=== PATIENT | female | born 1990 | race Caucasian/White ===

== ENCOUNTER 2019-06-27 18:56 | Observation (INO) | payer OTHER ==
[~2019-06-27] VITALS: Ht 162 cm; Wt 79.4 kg
--- NOTE | 2019-06-27 19:07 | NUR ---
C COLLAR PLACED TO PT AT THIS TIME.
[2019-06-27] MEDS ORDERED: NS IV 1000 ML 1,000 ML IV SCH (19:40)
[2019-06-27] MEDS ORDERED: fentaNYL INJECTION 100 MCG/2 ML AMP IVP ONE (19:45)
--- NOTE | 2019-06-27 19:48 | ED Trauma-Multisystem ---
General Chief Complaint: Trauma-Non Activation Stated Complaint: FELL APPROX 8 FT/MULTIPLE SEIZURES Activation Level: Level 2 Source of Information: Patient, Other Exam Limitations: No Limitations History of Present Illness Date Seen by Provider: Jun 27, 2019 Time Seen by Provider: 19:15 Initial Comments The patient arrives the ER by private conveyance with her significant other and chief complaint that sometime between 8:30 and 9:30 this morning she was on a roof doing roof repair and fell off the roof forward one-story onto her face and chest. She's having pain in her chest bilateral flanks, bilateral shoulders right knee and her face which she has a contusion abrasion between her eyebrows. Lost consciousness for less than 1 minute. She refuses to go the ER at that time. Her significant other watched her and said that she had several episodes where her eyes rolled back or head and she would have full body convulsions seizure-like activity. She denies a history of seizures. He is a type I diabetic. Her blood sugar has been okay. He's had no fever chills cough short ness of breath or difficulty with walking. She did lose control of bowel or bladder during her convulsions. Allergies and Home Medications Allergies Coded Allergies: No Known Drug Allergies (Unverified , 06/27/19) Home Medications Cyclobenzaprine HCl 10 Mg Tablet, 10 MG PO Q8H PRN for SPASMS Prescribed by: BREEZY HERNÁNDEZ on 06/28/1943 Hydrocodone Bit/Acetaminophen 1 Tab Tab, 1 EACH PO Q4-6HR PRN for PAIN-MODERATE Prescribed by: BREEZY HERNÁNDEZ on 06/28/1943 Ondansetron 4 Mg Tab.rapdis, 4 MG PO Q6H PRN for NAUSEA/VOMITING Prescribed by: BREEZY HERNÁNDEZ on 06/28/1943 Patient Home Medication List Home Medication List Reviewed: Yes Review of Systems Review of Systems Constitutional: No chills, No diaphoresis Eyes: Denies Blindness, Denies Blurred Vision Ears: Denies Dizziness, Denies Pain Nose: No Bloody Discharge, No Clear Discharge Mouth: No Bloody Discharge Throat: No Aphonia, No Hoarse, No Muffled, No Pain Respiratory: No cough, No short of breath Cardiovascular: See HPI, Chest Pain; Denies Edema, Denies Other Gastrointestinal: abdominal pain; No constipation Past Mrqcadc-Yhpbth-Rgqxqk Hx Patient Social History Alcohol Use: Denies Use Recreational Drug Use: No Smoking Status: Never a Smoker Recent Foreign Travel: No Contact w/Someone Who Travel: No Physical Exam Height, Weight, BMI Height: '" Weight: lbs. oz. kg; BMI Method: General Appearance: Anxious, Mild Distress Head: No Evidence of Injury, Active Bleeding Eyes: Bilateral Eye Normal Inspection, Bilateral Eye PERRL, Bilateral Eye EOMI Ears, Nose, Throat: Hearing Grossly Normal, No Evidence of ENT Injury, No Dental Injury; No Clear Fluid (Ears) Neck: Full Range of Motion, Normal Inspection, Supple, Tender Lateral Cardiovascular: Regular Rate, Rhythm, No Edema, Normal Peripheral Pulses Respiratory: Chest Non Tender, Lungs Clear, Normal Breath Sounds, No Accessory Muscle Use, No Respiratory Distress Gastrointestinal: Normal Bowel Sounds, No Organomegaly Extremity: Normal Capillary Refill, Normal Inspection, No Pedal Edema Neurologic/Psychiatric: Alert, Oriented x3, No Motor/Sensory Deficits Skin: Normal Color, Warm/Dry Progress/Results/Core Measures Results/Orders Lab Results Laboratory Tests Test 06/27/19 19:30 06/27/19 20:03 06/27/19 20:07 Range/Units Sodium Level 135 135-145 MMOL/L Potassium Level 4.7 3.6-5.0 MMOL/L Chloride Level 102 98-107 MMOL/L Carbon Dioxide Level 21 21-32 MMOL/L Anion Gap 12 5-14 MMOL/L Blood Urea Nitrogen 13 7-18 MG/DL Creatinine 0.85 0.60-1.30 MG/DL Estimat Glomerular Filtration Rate > 60 BUN/Creatinine Ratio 15 Glucose Level 377 H 70-105 MG/DL Calcium Level 9.1 8.5-10.1 MG/DL Corrected Calcium 9.2 8.5-10.1 MG/DL Total Bilirubin 0.3 0.1-1.0 MG/DL Aspartate Amino Transf (AST/SGOT) 33 5-34 U/L Alanine Aminotransferase (ALT/SGPT) 12 0-55 U/L Alkaline Phosphatase 109 40-136 U/L Total Protein 7.2 6.4-8.2 GM/DL Albumin 3.9 3.2-4.5 GM/DL Serum Test, Qualitative NEGATIVE NEGATIVE Urine Color YELLOW Urine Clarity CLEAR Urine pH 6.5 5-9 Urine Specific Blair 1.015 L 1.016-1.022 Urine Protein NEGATIVE NEGATIVE Urine Glucose (UA) 3+ H NEGATIVE Urine Ketones NEGATIVE NEGATIVE Urine Nitrite NEGATIVE NEGATIVE Urine Bilirubin NEGATIVE NEGATIVE Urine Urobilinogen 1.0 < = 1.0 MG/DL Urine Leukocyte Esterase NEGATIVE NEGATIVE Urine RBC (Auto) TRACE-I NEGATIVE Urine RBC 0-2 /HPF Urine WBC RARE /HPF Urine Squamous Epithelial Cells 2-5 /HPF Urine Renal Epithelial Cells NONE /HPF Urine Crystals NONE /LPF Urine Bacteria NEGATIVE /HPF Urine Casts NONE /LPF Urine Mucus NEGATIVE /LPF Urine Culture Indicated NO Urine Opiates Screen NEGATIVE NEGATIVE Urine Oxycodone Screen NEGATIVE NEGATIVE Urine Methadone Screen NEGATIVE NEGATIVE Urine Propoxyphene Screen NEGATIVE NEGATIVE Urine Barbiturates Screen NEGATIVE NEGATIVE Ur Tricyclic Antidepressants Screen NEGATIVE NEGATIVE Urine Phencyclidine Screen NEGATIVE NEGATIVE Urine Amphetamines Screen NEGATIVE NEGATIVE Urine Methamphetamines Screen NEGATIVE NEGATIVE Urine Benzodiazepines Screen NEGATIVE NEGATIVE Urine Cocaine Screen NEGATIVE NEGATIVE Urine Cannabinoids Screen NEGATIVE NEGATIVE White Blood Count 6.4 4.3-11.0 10^3/uL Red Blood Count 4.14 L 4.35-5.85 10^6/uL Hemoglobin 11.8 11.5-16.0 G/DL Hematocrit 37 35-52 % Mean Corpuscular Volume 89 80-99 FL Mean Corpuscular Hemoglobin 29 25-34 PG Mean Corpuscular Hemoglobin Concent 32 32-36 G/DL Red Cell Distribution Width 15.2 H 10.0-14.5 % Platelet Count 309 130-400 10^3/uL Mean Platelet Volume 10.0 7.4-10.4 FL Neutrophils (%) (Auto) 58 42-75 % Lymphocytes (%) (Auto) 35 12-44 % Monocytes (%) (Auto) 6 0-12 % Eosinophils (%) (Auto) 1 0-10 % Basophils (%) (Auto) 0 0-10 % Neutrophils # (Auto) 3.7 1.8-7.8 X 10^3 Lymphocytes # (Auto) 2.3 1.0-4.0 X 10^3 Monocytes # (Auto) 0.4 0.0-1.0 X 10^3 Eosinophils # (Auto) 0.1 0.0-0.3 10^3/uL Basophils # (Auto) 0.0 0.0-0.1 10^3/uL My Orders Orders - BREEZY HERNÁNDEZ Cbc With Automated Diff (06/27/19 19:15) Comprehensive Metabolic Panel (06/27/19 19:15) Ua Culture If Indicated (06/27/19 19:15) Drug Screen Stat (Urine) (06/27/19 19:15) Urine Bedside (06/27/19 19:15) Ct Head/Face/Cervical Wo (06/27/19 19:15) Fentanyl Injection (Sublimaze Injection (06/27/19 19:45) Accucheck Stat ONCE (06/27/19 19:40) Chest 1 View, Ap/Pa Only (06/27/19 19:40) Ed Iv/Invasive Line Start (06/27/19 19:40) Ns Iv 1000 Ml (Sodium Chloride 0.9%) (06/27/19 19:40) Ct Chest/Abdomen/Pelvis W (06/27/19 19:40) Shoulder, Bilateral, 3 Views (06/27/19 19:40) Knee, Right, 3 Views (06/27/19 19:40) Continuous Ekg Monitoring (06/27/19 19:52) Ekg Tracing (06/27/19 19:52) Hcg,Qualitative Serum (06/27/19 20:19) Iohexol Injection (Omnipaque 350 Mg/Ml 1 (06/27/19 20:30) Received Contrast (Hold Metformin- Contr (06/27/19 20:30) Ns (Ivpb) (Sodium Chloride 0.9% Ivpb Bag (06/27/19 20:30) Morphine Injection (Morphine Injection (06/27/19 21:11) Ondansetron Injection (Zofran Injectio (06/27/19 21:15) Insulin Aspart (Novolog) (Novolog (Charg (06/27/19 22:45) Orphenadrine Injection (Norflex Injectio (06/27/19 23:00) Accucheck Stat ONCE (06/27/19 23:17) Ketorolac Injection (Toradol Injection) (06/27/19 23:45) Ondansetron Injection (Zofran Injectio (06/28/19 00:30) Rx-Ondansetron Po (Rx-Zofran Po) (06/28/19 00:47) Rx-Hydrocodone/Apap 5-325 Mg (Rx-Vicodin (06/28/19 01:00) D50w (Emergency) Syringe (Dextrose 50% 5 (06/28/19 01:15) D50w (Emergency) Syringe (Dextrose 50% 5 (06/28/19 00:56) D50w (Emergency) Syringe (Dextrose 50% 5 (06/28/19 01:15) General/Regular (06/28/19 Breakfast) Accucheck Stat ONCE (06/28/19 01:36) Dextrose 10% Iv Solution (D10w 1000 Ml I (06/28/19 01:57) Dextrose 10% Iv Solution (D10w 1000 Ml I (06/28/19 02:15) D50w (Emergency) Syringe (Dextrose 50% 5 (06/28/19 02:15) Dextrose 10% Iv Solution (D10w 1000 Ml I (06/28/19 02:15) Medications Given in ED Current Medications Medications Dose Ordered Sig/Dl Route Start Time Stop Time Status Last Admin Dose Admin Dextrose 25 ml ONCE ONCE IV 06/28/19 01:15 06/28/19 01:09 DC 06/28/19 01:04 25 ML Dextrose 50 ml ONCE ONCE IV 06/28/19 01:15 06/28/19 01:16 DC 06/28/19 02:07 50 ML Fentanyl Citrate 50 mcg ONCE ONCE IVP 06/27/19 19:45 06/27/19 19:46 DC 06/27/19 20:48 50 MCG Insulin Aspart 20 unit ONCE ONCE SC 06/27/19 22:45 06/27/19 22:46 DC 06/28/19 00:21 20 UNIT Iohexol 100 ml ONCE ONCE IV 06/27/19 20:30 06/27/19 20:32 DC 06/27/19 20:25 94 ML Ketorolac Tromethamine 30 mg ONCE ONCE IVP 06/27/19 23:45 06/27/19 23:46 DC 06/28/19 00:20 30 MG Ondansetron HCl 4 mg ONCE ONCE IVP 06/27/19 21:15 06/27/19 21:16 DC 06/27/19 22:03 4 MG Ondansetron HCl 8 mg ONCE ONCE IVP 06/28/19 00:30 06/28/19 00:31 DC 06/28/19 00:50 8 MG Orphenadrine Citrate 60 mg ONCE ONCE IV 06/27/19 23:00 06/27/19 23:01 DC 06/28/19 00:20 60 MG Vital Signs/I&O 06/28/19 00:00 Intake Total 1000 ml Balance 1000 ml Progress Progress Note #1: Time: 19:[address] without IV contrast of the head, maxillofacial and neck. CT with IV contrast of her chest and abdomen. Plain view films of her shoulders, right knee and chest. Blood and urine. Accu-Chek. Progress Note #2: Time: 22:50 Progress Note C-collar cleared radiographically. Patient still having some tenderness on Norflex and a soft collar ordered. We offered her Toradol and she declined at this time. She received the morphine and that took care of her pain for the time being. Progress Note #3: Time: 01:02 Progress Note Repeat blood glucose of 29. Plan to give amp of D50. Progress Note #4: Time: 02:31 Progress Note After the amp of D50 her blood sugar was 129 so we ordered her a meal tray. As the bathhouse keeper was taking her a meal tray she was sweaty and clammy and her blood sugar was back in 30s. D10 was ordered but we do not have any in the ER so we gave her another amp of D50. We started D10 at 100 cc an hour and discussed staying as an observation and she and her significant other agreed to do this. We'll put her in the stepdown unit. Progress Note #5: Time: 03:04 Progress Note Patient's blood sugar back down to 39. She is mentating and talking. We checked with a second glucometer and 34. Went ahead and gave her 200 cc bolus of D10 and increased her D10 to 200 cc per hour. Initial ECG Impression Date: Jun 27, 2019 Initial ECG Impression Time: 20:49 Initial ECG Rate: 88 Initial ECG Rhythm: Normal Sinus Initial ECG Intervals: Normal Initial ECG Impression: Normal Initial ECG Comparisson: No Previous ECG Available Comment Normal sinus rhythm without ST changes. Diagnostic Imaging Diagonstic Imaging: Xray Plain Films/CT/US/NM/MRI: chest (1v) Comments NAME: MORGANMICHELLE RENTERIA [facility] REC#: [id number] PT STATUS: REG ER : 1990 PHYSICIAN: BREEZY HERNÁNDEZ MD ADMIT DATE: 06/27/19/ER Signed Date of Exam:06/27/19 CHEST 1 VIEW, AP/PA ONLY INDICATION: Fall. EXAMINATION: Single view of the chest was obtained. FINDINGS: The heart size, mediastinal configuration and pulmonary vascularity are within normal limits. There is no pleural effusion, pneumothorax or pneumonia. The osseous structures are unremarkable. IMPRESSION: No acute cardiopulmonary abnormality. Dictated by: Dictated on workstation # [id number] Dict: 06/27/192040 Trans: 06/27/192052 PJE [id number] Interpreted by: MASON PATEL MD Electronically signed by: MASON PATEL MD 06/27/192052 Reviewed: Reviewed by Me Diagonstic Imaging: CT Plain Films/CT/US/NM/MRI: c-spine, head Comments [facility], [place] NAME: MICHELLE EASLEY [facility] REC#: [id number] PT STATUS: REG ER : 1990 PHYSICIAN: BREEZY HERNÁNDEZ MD ADMIT DATE: 06/27/19/ER Signed Date of Exam:06/27/19 CT HEAD/FACE/CERVICAL WO PROCEDURE: CT head, face, and cervical spine without contrast. TECHNIQUE: Multiple contiguous axial images were obtained through the head, neck, and facial bones without the use of intravenous contrast. Sagittal and coronal reformations through the cervical spine and facial bones were also performed. Auto Exposure Controls were utilized during the CT exam to meet ALARA standards for radiation dose reduction. INDICATION: Head and neck pain after fall. FINDINGS: The ventricles and sulci are within normal limits. There is no hydrocephalus or cerebral edema. There is no midline shift or mass effect. There is no intracranial mass, hemorrhage or extra-axial fluid collection. The visualized paranasal sinuses and mastoid air cells are clear. No fractures are identified. CERVICAL SPINE: Alignment is normal. There is no fracture or traumatic subluxation. The prevertebral soft tissues are within normal limits. The odontoid is intact and the lateral masses are well aligned. There are no soft tissue abnormalities. IMPRESSION: 1. No acute intracranial process. 2. No focal abnormality in the cervical spine. Dictated by: Dictated on workstation # [id number] Dict: 06/27/192022 Trans: 06/27/192025 VASYL [id number] Interpreted by: MASON PATEL MD Electronically signed by: MASON PATEL MD 06/27/192025 Reviewed: Reviewed by Me Diagonstic Imaging: CT Plain Films/CT/US/NM/MRI: chest, abdomen, pelvis Comments [facility], [place] NAME: MICHELLE EASLEY [facility] REC#: [id number] PT STATUS: REG ER : 1990 PHYSICIAN: BREEZY HERNÁNDEZ MD ADMIT DATE: 06/27/19/ER Signed Date of Exam:06/27/19 CT CHEST/ABDOMEN/PELVIS W PROCEDURE: CT chest, abdomen, and pelvis with contrast. TECHNIQUE: Multiple contiguous axial images were obtained through the chest, abdomen, and pelvis after the administration of intravenous contrast. Auto Exposure Controls were utilized during the CT exam to meet ALARA standards for radiation dose reduction. INDICATION: Fall. FINDINGS: There are no discrete pulmonary nodules, masses or infiltrates. There is no pleural or pericardial fluid. There is no pneumothorax. Heart size is normal. Thoracic aorta is normal in caliber without evidence of dissection. There is no pathologically enlarged adenopathy in the chest. There is no evidence of mediastinal hematoma. The osseous structures are unremarkable. The liver is normal in size without focal lesions. Gallbladder is unremarkable. There is no biliary duct dilatation. Spleen is normal. Pancreas is normal. Adrenal glands and kidneys are normal. Aorta is nonaneurysmal. Bowel gas pattern is nonspecific. There is no free air. There is no ascites. There are no focal inflammatory changes. Specifically, there is no perihepatic or perisplenic free fluid. Bladder is normal. There is no pelvic mass or adenopathy. The osseous structures are unremarkable. IMPRESSION: No acute abnormality in the chest, abdomen or pelvis Dictated by: Dictated on workstation # [id number] Dict: 06/27/192029 Trans: 06/27/192052 VASYL [id number] Interpreted by: MASON PATEL MD Electronically signed by: MASON PATEL MD 06/27/192052 Reviewed: Reviewed by Sd Diagonstic Imaging: Xray Plain Films/CT/US/NM/MRI: knee (r) Comments [facility], [place] NAME: MICHELLE EASLEY [facility] REC#: [id number] PT STATUS: REG ER : 1990 PHYSICIAN: BREEZY HERNÁNDEZ MD ADMIT DATE: 06/27/19/ER Signed Date of Exam:06/27/19 KNEE, RIGHT, 3 VIEWS INDICATION: Fall. EXAMINATION: Three views of the right knee were obtained. FINDINGS: The alignment is normal. There is no fracture or dislocation. Soft tissues are unremarkable. IMPRESSION: No focal abnormality in the right knee. Dictated by: Dictated on workstation # [id number] Dict: 06/27/192041 Trans: 06/27/192052 PJE [id number] Interpreted by: MASON PATEL MD Electronically signed by: MASON PATEL MD 06/27/192052 Reviewed: Reviewed by Sd Diagonstic Imaging: Xray Plain Films/CT/US/NM/MRI: other (bilateral shoulders) Comments [facility], [place] NAME: MICHELLE EASLEY [facility] REC#: [id number] PT STATUS: REG ER : 1990 PHYSICIAN: BREEZY HERNÁNDEZ MD ADMIT DATE: 06/27/19/ER Signed Date of Exam:06/27/19 SHOULDER, BILATERAL, 3 VIEWS INDICATION: Fall. EXAMINATION: Multiple views of bilateral shoulders. FINDINGS: The alignment of the right shoulder is normal. There is no fracture or dislocation. Soft tissues are unremarkable. Right lung is clear. The left shoulder is also normal. There is no fracture or dislocation. There appears to be a bone island in the glenoid. Left lung is clear. Soft tissues are unremarkable. IMPRESSION: No acute fracture or dislocation. Dictated by: Dictated on workstation # [id number] Dict: 06/27/192040 Trans: 06/27/192052 PJE [id number] Interpreted by: MASON PATEL MD Electronically signed by: MASON PATEL MD 06/27/192052 Reviewed: Reviewed by Me Consults : Consulting Physician: ABIGAIL ARELLANO DO Consults Notes [address] Arellano earlier in the evening and again after all her imaging back we reviewed and agreed with sending her home. We will not be observing her for trauma related reasons just hypoglycemia. Departure Communication (Admissions) Time/Spoke to Admitting Phy: 02:30 Discussed the case with Dr. Cueto and he agrees to observe in the stepdown unit . She is not been observed for her trauma related injuries or other from hypoglycemia. Impression Primary Impression: Fall from roof as cause of accidental injury Additional Impressions: Concussion Qualified Codes: S06.0X1A - Concussion with loss of consciousness of 30 minutes or less, initial encounter Contusion of forehead Qualified Codes: S00.83XA - Contusion of other part of head, initial encounter Shoulder pain, bilateral Qualified Codes: M25.511 - Pain in right shoulder; M25.512 - Pain in left shoulder Right knee pain Qualified Codes: M25.561 - Pain in right knee Neck pain, acute Hypoglycemia Disposition: ADMITTED INPATIENT Condition: Stable Admissions Decision to Admit Reason: Admit from ER (General) Decision to Admit/Date: Jun 28, 2019 Time/Decision to Admit Time: 02:33 Departure-Patient Inst. Referrals: NO,LOCAL PHYSICIAN (PCP/Family) Primary Care Physician Patient Instructions: Concussion in Adults, Minor Head Injury Add. Discharge Instructions: Expect to be sore over the next couple weeks. If you're not seeing some impro vement in need to follow-up with your primary care doctor. Topical creams such as icy hot or Biofreeze as well as heating pads can be helpful. Ice to the neck and back for the first couple days can be helpful. Tylenol 650 mg every 8 hours as needed for pain. Ibuprofen 800 mg every 8 hours as needed for pain. Hydrocodone one tablet every 6 hours as needed for breakthrough pain. Flexeril every 8 hours as needed for muscle spasms. Ondansetron one tablet every 6 hours as needed for nausea or vomiting. Spend the next 2 days taking it easy around the house. MiraLAX once or twice a day all using hydrocodone to prevent constipation. All discharge instructions reviewed with patient and/or family. Voiced understanding. Scripts Cyclobenzaprine HCl (Cyclobenzaprine HCl) 10 Mg Tablet 10 MG PO Q8H PRN for SPASMS, #15 TAB 0 Refills Prov: BREEZY HERNÁNDEZ 06/28/19 Ondansetron (Ondansetron Odt) 4 Mg Tab.rapdis 4 MG PO Q6H PRN for NAUSEA/VOMITING, #15 TAB 0 Refills Prov: BREEZY HERNÁNDEZ 06/28/19 Hydrocodone Bit/Acetaminophen (Hydrocodone/Acetaminophen 5/325mg Tablet) 1 Tab Tab 1 EACH PO Q4-6HR PRN for PAIN-MODERATE MDD 10, #20 TAB 0 Refills Prov: BREEZY HERNÁNDEZ 06/28/19 Work/School Note: Work Release Form Date Seen in the Emergency Department: Jul 01, 2019 Return to Work: Jul 01, 2019 Restrictions: Need Release from Doctor Other Restrictions Listed Below: Light duty, no lifting more than 5 pounds until 08/02/19. BREEZY HERNÁNDEZ Jun 27, 2019 19:48
[2019-06-27 20:01] LABS: ALANINE AMINOTRANSFERASE 12 U/L (0-55); ALBUMIN 3.9 GM/DL (3.2-4.5); ALKALINE PHOSPHATASE 109 U/L (40-136); BILIRUBIN,TOTAL 0.3 MG/DL (0.1-1.0); BUN/CREATININE RATIO 15; CALCIUM 9.1 MG/DL (8.5-10.1); CARBON DIOXIDE 21 MMOL/L (21-32); CHLORIDE 102 MMOL/L (98-107); CREATININE SERUM 0.85 MG/DL (0.60-1.30); GFR ESTIMATED > 60; GLUCOSE 377 MG/DL (70-105); POTASSIUM 4.7 MMOL/L (3.6-5.0); SODIUM 135 MMOL/L (135-145); TOTAL PROTEIN 7.2 GM/DL (6.4-8.2)
[2019-06-27 20:13] LABS: BASOPHILS % (AUTO) 0 % (0-10); EOSINOPHILS # (AUTO) 0.1 10^3/uL (0.0-0.3); EOSINOPHILS % (AUTO) 1 % (0-10); HEMATOCRIT 37 % (35-52); HEMOGLOBIN 11.8 G/DL (11.5-16.0); LYMPHOCYTES # (AUTO) 2.3 X 10^3 (1.0-4.0); LYMPHOCYTES % (AUTO) 35 % (12-44); MEAN CORPUSCULAR HEMOGLOBIN 29 PG (25-34); MEAN CORPUSCULAR HGB CONC 32 G/DL (32-36); MEAN CORPUSCULAR VOLUME 89 FL (80-99); MONOCYTES # (AUTO) 0.4 X 10^3 (0.0-1.0); MONOCYTES % (AUTO) 6 % (0-12); NEUTROPHILS # (AUTO) 3.7 X 10^3 (1.8-7.8); NEUTROPHILS % (AUTO) 58 % (42-75); PLATELET COUNT 309 10^3/uL (130-400); RED CELL DISTRIBUTION WIDTH 15.2 % (10.0-14.5); WHITE BLOOD COUNT 6.4 10^3/uL (4.3-11.0)
[2019-06-27 20:16] LABS: BILIRUBIN,URINE NEGATIVE (NEGATIVE); CLARITY,URINE CLEAR; COLOR,URINE YELLOW; GLUCOSE, URINE (UA) 3+ (NEGATIVE); KETONES,URINE NEGATIVE (NEGATIVE); LEUKOCYTE ESTERASE ,URINE NEGATIVE (NEGATIVE); NITRITE,URINE NEGATIVE (NEGATIVE); PH,URINE 6.5 (5-9); PROTEIN,URINE NEGATIVE (NEGATIVE)
[2019-06-27 20:24] LABS: AMPHETAMINE SCREEN, URINE NEGATIVE (NEGATIVE); BARBITURATE SCREEN URINE NEGATIVE (NEGATIVE); BENZODIAZEPINES SCREEN URINE NEGATIVE (NEGATIVE); CANNABINOID SCREEN, URINE NEGATIVE (NEGATIVE); COCAINE SCREEN URINE NEGATIVE (NEGATIVE); METHADONE STAT NEGATIVE (NEGATIVE); METHAMPHETAMINE SCREEN URINE S NEGATIVE (NEGATIVE); OPIATE SCREEN URINE NEGATIVE (NEGATIVE); OXYCODONE STAT NEGATIVE (NEGATIVE); PROPOXYPHENE STAT NEGATIVE (NEGATIVE); TRICYCLIC ANTIDEPRESSANTS SCRE NEGATIVE (NEGATIVE)
--- NOTE | 2019-06-27 20:26 | Diagnostic Imaging Report ---
PROCEDURE: CT head, face, and cervical spine without contrast. TECHNIQUE: Multiple contiguous axial images were obtained through the head, neck, and facial bones without the use of intravenous contrast. Sagittal and coronal reformations through the cervical spine and facial bones were also performed. Auto Exposure Controls were utilized during the CT exam to meet ALARA standards for radiation dose reduction. INDICATION: Head and neck pain after fall. FINDINGS: The ventricles and sulci are within normal limits. There is no hydrocephalus or cerebral edema. There is no midline shift or mass effect. There is no intracranial mass, hemorrhage or extra-axial fluid collection. The visualized paranasal sinuses and mastoid air cells are clear. No fractures are identified. CERVICAL SPINE: Alignment is normal. There is no fracture or traumatic subluxation. The prevertebral soft tissues are within normal limits. The odontoid is intact and the lateral masses are well aligned. There are no soft tissue abnormalities. IMPRESSION: 1. No acute intracranial process. 2. No focal abnormality in the cervical spine. Dictated by: Dictated on workstation # [id number]
[2019-06-27] MEDS ORDERED: IOHEXOL 350 MG/ML 100 ML (OMNIPAQUE 350) VIAL IV ONE (20:30)
[2019-06-27] MEDS ORDERED: HOLD METFORMIN - RECEIVED CONTRAST 20 ML VIAL IV SCH (20:30)
[2019-06-27] MEDS ORDERED: NS 100 ML (IVPB) BAG IV ONE (20:30)
[2019-06-27 20:32] LABS: RBC,URINE 0-2 /HPF; WBC,URINE RARE /HPF
[2019-06-27 20:33] LABS: BACTERIA,URINE NEGATIVE /HPF
--- NOTE | 2019-06-27 20:41 | Diagnostic Imaging Report ---
PROCEDURE: CT chest, abdomen, and pelvis with contrast. TECHNIQUE: Multiple contiguous axial images were obtained through the chest, abdomen, and pelvis after the administration of intravenous contrast. Auto Exposure Controls were utilized during the CT exam to meet ALARA standards for radiation dose reduction. INDICATION: Fall. FINDINGS: There are no discrete pulmonary nodules, masses or infiltrates. There is no pleural or pericardial fluid. There is no pneumothorax. Heart size is normal. Thoracic aorta is normal in caliber without evidence of dissection. There is no pathologically enlarged adenopathy in the chest. There is no evidence of mediastinal hematoma. The osseous structures are unremarkable. The liver is normal in size without focal lesions. Gallbladder is unremarkable. There is no biliary duct dilatation. Spleen is normal. Pancreas is normal. Adrenal glands and kidneys are normal. Aorta is nonaneurysmal. Bowel gas pattern is nonspecific. There is no free air. There is no ascites. There are no focal inflammatory changes. Specifically, there is no perihepatic or perisplenic free fluid. Bladder is normal. There is no pelvic mass or adenopathy. The osseous structures are unremarkable. IMPRESSION: No acute abnormality in the chest, abdomen or pelvis Dictated by: Dictated on workstation # [id number]
--- NOTE | 2019-06-27 20:44 | Diagnostic Imaging Report ---
INDICATION: Fall. EXAMINATION: Single view of the chest was obtained. FINDINGS: The heart size, mediastinal configuration and pulmonary vascularity are within normal limits. There is no pleural effusion, pneumothorax or pneumonia. The osseous structures are unremarkable. IMPRESSION: No acute cardiopulmonary abnormality. Dictated by: Dictated on workstation # [id number]
--- NOTE | 2019-06-27 20:45 | Diagnostic Imaging Report ---
INDICATION: Fall. EXAMINATION: Multiple views of bilateral shoulders. FINDINGS: The alignment of the right shoulder is normal. There is no fracture or dislocation. Soft tissues are unremarkable. Right lung is clear. The left shoulder is also normal. There is no fracture or dislocation. There appears to be a bone island in the glenoid. Left lung is clear. Soft tissues are unremarkable. IMPRESSION: No acute fracture or dislocation. Dictated by: Dictated on workstation # [id number]
--- NOTE | 2019-06-27 20:46 | Diagnostic Imaging Report ---
INDICATION: Fall. EXAMINATION: Three views of the right knee were obtained. FINDINGS: The alignment is normal. There is no fracture or dislocation. Soft tissues are unremarkable. IMPRESSION: No focal abnormality in the right knee. Dictated by: Dictated on workstation # [id number]
[2019-06-27] MEDS ORDERED: morphine INJ 10 MG/ML 1ML (SYR OR VIAL) IVP STA (21:11)
[2019-06-27] MEDS ORDERED: ONDANSETRON 4 MG/2 ML (SDV) Z0FRAN IVP ONE (21:15)
[2019-06-27] MEDS ORDERED: inSUlin ASPART (NovoLOG) 1 UNIT/0.01 ML (CHARGE PER UNIT) SC ONE (22:45)
--- NOTE | 2019-06-27 22:50 | NUR ---
C COLLAR REMOVED BY DR. HERNÁNDEZ AT THIS TIME. SOFT COLLAR PLACED TO PT AT THIS TIME.
[2019-06-27] MEDS ORDERED: ORPHENADRINE 60 MG/2 ML (NORFLEX) AMP IV ONE (23:00)
[2019-06-27] MEDS ORDERED: KETOROLAC 30 MG/ML VIAL IVP ONE (23:45)
[2019-06-28] VITALS (9 sets, daily range): BP systolic 90–120; BP diastolic 52–80
[2019-06-28] MEDS ORDERED: ONDANSETRON 4 MG/2 ML (SDV) Z0FRAN IVP ONE (00:30)
[2019-06-28] MEDS ORDERED: ONDA4TAB11 PO (00:45)
[2019-06-28] MEDS ORDERED: ACHD5005 PO (00:45)
[2019-06-28] MEDS ORDERED: CYCL10TA9 PO (00:45)
[2019-06-28] MEDS: RX-ONDANSETRON 4 MG ODT (ZOFRAN) PPK #4 PO STA ×2 (00:56→03:00)
[2019-06-28] MEDS ORDERED: DEXTROSE 50% 50 ML (IMS) SYR ONE (00:56)
[2019-06-28] MEDS: RX-HYDROCODONE/APAP 5/325 MG #4 TAB PK PO PRN ×2 (00:57→03:00)
[2019-06-28] MEDS ORDERED: DEXTROSE 50% 50 ML (IMS) SYR IV ONE ×3 (01:15→02:15)
[2019-06-28] MEDS ORDERED: DEXTROSE 10% IV SOLUTION 1,000 ML IV ONE (01:57)
[2019-06-28] MEDS: DEXTROSE 10% IV SOLUTION 1,000 ML IV SCH ×2 (02:11→04:29)
[2019-06-28] MEDS ORDERED: DEXTROSE 10% IV SOLUTION 1,000 ML IV SCH ×2 (02:15→06:00)
--- NOTE | 2019-06-28 04:45 | NUR ---
0100- BLOOD SUGAR 29 MG/DL. PT HARD TO AROUSE. AT BEDSIDE. DR. HERNÁNDEZ NOTIFIED. NEW ORDERS RECEIVED. 0104- D50 GIVEN IVP. 0115- BLOOD SUGAR 138 MG/DL. PT AWAKE AND ALERT AND ORIENTED. REMAINS AT BEDSIDE. 0158- BLOOD SUGAR 33 MG/DL. DR. HERNÁNDEZ NOTIFIED. NEW ORDERS RECEIVED. 0201- D50 GIVEN IVP. 0211- D10 IVF STARTED AT 100CC/HR AFTER HAVING TO BE OBTAINED FROM ICU. TUBE SYSTEM WAS DOWN SO STAFF HAD TO LEAVE FROM ER TO COLLECT FLUIDS IN ICU CAUSING DELAY OF START OF INFUSION. 0253- BLOOD SUGAR 38 MG/DL. PT OPENS EYES AND ANSWERS QUESTIONS APPROPRIATELY, BUT DELAYED. 0255- BLOOD SUGAR RE-CHECK WITH DIFFERENT GLUCOMETER. BLOOD SUGAR READING 34 MD/DL. 0258- PER DR. HERNÁNDEZ VERBAL ORDERS, 200 CC BOLUS OF D10 IVF STARTED VIA PUMP AT 999CC/HR. THEN D10 INFUSION INCREASED TO 200CC/HR. 0303- ICU NOTIFIED OF DELAY REPORT/TRANSFER OF PT R/T PT CONDITION. 0334- BLOOD SUGAR 63 MG/DL. 0350- PER DR. HERNÁNDEZ VERBAL ORDERS, 500 CC BOLUS OF D10 IVF STARTED VIA PUMP AT 999CC/HR. THEN IVF CONTINUED TO INFUSE AT 200CC/HR. 0444- BLOOD SUGAR 158 MG/DL. DR. HERNÁNDEZ NOTIFIED. 0445- REPORT GIVEN TO DARYN WOODALL.
[2019-06-28] MEDS ORDERED: ACETAMINOPHEN 325 MG TABLET PO PRN (06:00)
[2019-06-28] MEDS ORDERED: HYDROcodone/APAP 5 MG/325 MG (LORTAB) TAB PO PRN (06:00)
[2019-06-28] MEDS ORDERED: ONDANSETRON 4 MG/2 ML (SDV) Z0FRAN IV PRN (06:00)
[2019-06-28] MEDS ORDERED: oxyCODONE/APAP 5/325MG (PERCOCET 5) TABLET ONE (06:07)
[2019-06-28] MEDS: oxyCODONE/APAP 5/325MG (PERCOCET 5) TABLET PO PRN ×3 (06:15→20:08)
[2019-06-28] MEDS ORDERED: LACTATED RINGERS 1,000 ML IV ONE (06:51)
[2019-06-28 07:39] LABS: BASOPHILS % (AUTO) 0 % (0-10); EOSINOPHILS % (AUTO) 1 % (0-10); HEMATOCRIT 36 % (35-52); HEMOGLOBIN 11.4 G/DL (11.5-16.0); LYMPHOCYTES # (AUTO) 1.1 X 10^3 (1.0-4.0); LYMPHOCYTES % (AUTO) 20 % (12-44); MEAN CORPUSCULAR HEMOGLOBIN 28 PG (25-34); MEAN CORPUSCULAR HGB CONC 32 G/DL (32-36); MEAN CORPUSCULAR VOLUME 89 FL (80-99); MEAN PLATELET VOLUME 10.2 FL (7.4-10.4); MONOCYTES # (AUTO) 0.2 X 10^3 (0.0-1.0); MONOCYTES % (AUTO) 4 % (0-12); NEUTROPHILS # (AUTO) 4.1 X 10^3 (1.8-7.8); NEUTROPHILS % (AUTO) 75 % (42-75); PLATELET COUNT 279 10^3/uL (130-400); RED CELL DISTRIBUTION WIDTH 14.9 % (10.0-14.5); WHITE BLOOD COUNT 5.5 10^3/uL (4.3-11.0)
[2019-06-28] MEDS: LACTATED RINGERS 1,000 ML IV SCH ×2 (07:47→15:52)
[2019-06-28 07:59] LABS: ALANINE AMINOTRANSFERASE 8 U/L (0-55); ALBUMIN 3.3 GM/DL (3.2-4.5); ALKALINE PHOSPHATASE 89 U/L (40-136); AMYLASE 46 U/L (25-125); BILIRUBIN,TOTAL 0.5 MG/DL (0.1-1.0); BUN/CREATININE RATIO 15; CALCIUM 8.1 MG/DL (8.5-10.1); CARBON DIOXIDE 20 MMOL/L (21-32); CHLORIDE 105 MMOL/L (98-107); CREATININE SERUM 0.71 MG/DL (0.60-1.30); GFR ESTIMATED > 60; GLUCOSE 281 MG/DL (70-105); LIPASE 5 U/L (8-78); MAGNESIUM 1.5 MG/DL (1.6-2.4); PHOSPHORUS 3.6 MG/DL (2.3-4.7); POTASSIUM 3.9 MMOL/L (3.6-5.0); SODIUM 135 MMOL/L (135-145); TOTAL PROTEIN 5.7 GM/DL (6.4-8.2)
[2019-06-28] MEDS: CYCLOBENZAPRINE 10 MG (FLEXERIL) TAB PO PRN ×2 (09:09→17:37)
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
--- NOTE | 2019-06-28 10:20 | NUR ---
Pastoral care visit.
[2019-06-28] MEDS: KETOROLAC 15 MG/ML VIAL IV PRN ×2 (10:23→17:42)
[2019-06-28] MEDS ORDERED: PAMI30VI8 SQ (11:10)
[2019-06-28] MEDS ORDERED: INSU100V6 SQ (11:10)
--- NOTE | 2019-06-28 13:04 | Discharge Inst-Simple/Standard ---
Discharge Inst-Standard Patient Instructions/Follow Up Plan of Care/Instructions/FU: Is continuing to take her medications as written. Please follow-up with your primary care doctor within the next week. Activity as Tolerated: Yes Discharge Diet: ADA Diet Return to The Hospital For: Worsening pain, confusion, very low or very high blood sugars, seizure, if you feel you're getting worse. BRISSA NEWMAN MD Jun 28, 2019 13:04
[2019-06-28] MEDS ORDERED: inSUlin ASPART (NovoLOG) 1 UNIT/0.01 ML (CHARGE PER UNIT) SC SCH (16:00)
--- NOTE | 2019-06-28 16:42 | NUR ---
RECEIVED FROM ICU, REPORT FROM ICU NURSE, PATIENT ALERT, ORIENTED TO ROOM, CALL LIGHT WITHIN REACH, C/O HEADACHE, FAMILY AT BEDSIDE, SALINE LOCK WITHOUT REDNESS OR SWELLING.
[2019-06-28] MEDS: inSUlin ASPART (NovoLOG) 1 UNIT/0.01 ML (CHARGE PER UNIT) SC SCH ×2 (19:03→20:59)
--- NOTE | 2019-06-28 20:19 | NUR ---
Called Dr. Rivera at this time and verified it's ok to restart Klonapin and Zoloft that pt. takes at home.
[2019-06-28] MEDS ORDERED: clonazePAM 1 MG (KlonoPIN) TAB PO NR (20:28)
[2019-06-28] MEDS ORDERED: SERTRALINE 50 MG (ZOLOFT) TABLET PO SCH (21:00)
[2019-06-29 03:40] VITALS: BP 97/56
[2019-06-29] MEDS: inSUlin ASPART (NovoLOG) 1 UNIT/0.01 ML (CHARGE PER UNIT) SC SCH ×3 (06:03→17:07)
[2019-06-29 08:00] VITALS: BP 90/54
[2019-06-29] MEDS: CYCLOBENZAPRINE 10 MG (FLEXERIL) TAB PO PRN ×2 (08:23→17:07)
[2019-06-29] MEDS: oxyCODONE/APAP 5/325MG (PERCOCET 5) TABLET PO PRN ×3 (08:23→17:07)
--- NOTE | 2019-06-29 09:31 | Discharge Summary ---
EDU HURST,MED STUDENT 06/29/19 0931: Diagnosis/Chief Complaint Date of Admission Jun 28, 2019 at 02:40 Discharge Date: Jun 28, 2019 Primary Care No,Local Physician Discharge Diagnosis (1) Contusion of forehead Status: Acute (2) Hypoglycemia Status: Acute (3) Insulin dependent diabetes mellitus Status: Acute Discharge Summary Discharge Physical Exam Allergies: Coded Allergies: shellfish derived (Verified Allergy, Unknown, 06/28/19) hydromorphone (Verified Adverse Reaction, Unknown, 06/28/19) PT REPORTS EXTREME AGGRESSION WITH DILAUDID Vitals & I&Os Vital Signs Date Time Temp Pulse Resp B/P (MAP) Pulse Ox O2 Delivery O2 Flow Rate FiO2 06/29/19 08:00 36.2 87 16 90/54 (66) 98 Room Air General Appearance: No Apparent Distress, WD/WN HEENT: Pharynx Normal, Moist Mucous Membranes Respiratory: Chest Non Tender, Lungs Clear, Normal Breath Sounds, No Accessory Muscle Use, No Respiratory Distress Cardiovascular: Regular Rate, Rhythm, No Edema, No Murmur Gastrointestinal: Non Tender, Soft Extremity: No Calf Tenderness, No Pedal Edema Skin: Normal Color, Warm/Dry Neurologic/Psychiatric: Alert, Normal Mood/Affect Hospital Course Was the Problem List Reviewed?: Yes Patient presented to the ED on 06/27/19 with possible seizure following a fall from scaffolding in her house. She was found to be hypoglycemic in the ED with blood sugars in the 20s and 30s and she did admit to a history of hypoglycemic seizure in her childhood. She underwent a trauma evaluation due to the fall and imaging was all negative. Dr. Cunningham evaluated her in the ED and did not recommend admission for trauma. Her blood sugars improved with her home regimen and she has had no further hypoglycemic events or seizure activity. She has mild musculoskeletal pain complaints due to the fall but this has been well controlled with pain medication. She was advised that she may continue with NSAIDs at home, and she is agreeable for discharge today. She will follow up with her primary care provider Dr. Musa in the next 1 week. Labs (last 24 hrs) Laboratory Tests 06/28/19 15:13: Glucometer 259H 06/28/19 18:09: Glucometer 337H 06/28/19 20:57: Glucometer 118H 06/29/19 05:33: Glucometer 94 Patient resulted labs reviewed. Pending Labs Laboratory Tests 06/29/19 05:33: Glucometer 94 Imaging: Reviewed Imaging Films, Reviewed Imaging Report Discharge Home Medications: Active Scripts Active Cyclobenzaprine HCl 10 Mg Tablet 10 Mg PO Q8H PRN Ondansetron Odt (Ondansetron) 4 Mg Tab.rapdis 4 Mg PO Q6H PRN Hydrocodone/Acetaminophen 5/325mg Tablet (Acetaminophen/Hydrocodone Bitart) 1 Tab Tab 1 Each PO Q4-6HR PRN MDD 10 Reported Humalog (Insulin Lispro) 100 Unit/1 Ml Cartridge 6 Unit SQ AC Lantus (Insulin Glargine,Hum.rec.anlog) 100 Unit/1 Ml Vial 45 Unit SQ DAILY Instructions to patient/family Please see electronic discharge instructions given to patient. Clinical Quality Measures DVT/VTE Risk/Contraindication: Risk Factor Score Per Nursin RFS Level Per Nursing on Admit: 1=Low/No VTE PPX BRISSA ARROYO MD 06/29/19 1517: Discharge Summary Discharge Physical Exam Allergies: Coded Allergies: shellfish derived (Verified Allergy, Unknown, 06/28/19) hydromorphone (Verified Adverse Reaction, Unknown, 06/28/19) PT REPORTS EXTREME AGGRESSION WITH DILAUDID Discussion & Recommendations Discharge Planning: >30 minutes discharge planning Supervisory-Addendum Brief Verification & Attestation Participated in pt care: history, MDM, physical Personally performed: exam, history, MDM, supervision of care Care discussed with: Medical Student Procedures: n/a Results interpretation: Verified all documentation Verification and Attestation of Medical Student E/M Service A medical student performed and documented this service in my presence. I reviewed and verified all information documented by the medical student and made modifications to such information, when appropriate. I personally performed the physical exam and medical decision making. Brissa Arroyo, Jun 29, 2019,15:12 Problem Qualifiers (1) Contusion of forehead: Encounter type: initial encounter Qualified Codes: S00.83XA - Contusion of other part of head, initial encounter EDU HURST,MED STUDENT Jun 29, 2019 09:31 BRISSA ARROYO MD Jun 29, 2019 15:17
[2019-06-29] MEDS: KETOROLAC 15 MG/ML VIAL IV PRN (10:16)
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
[2019-06-29 12:00] VITALS: BP 111/73
[2019-06-29 17:15] VITALS: BP 111/73
== END 2019-06-29 17:15 | disposition home or self-care (01) ==
LOC: ER 18:58 → ICU 06-28 02:40 → 4TH 06-28 16:42
PROVIDERS: ADMIT Internal Medicine; ATTEND Internal Medicine
DX: S06.0X1A Concussion with loss of consciousness of 30 minutes or less, initial encounter (principal); S00.83XA Contusion of other part of head, initial encounter; M25.511 Pain in right shoulder; M25.512 Pain in left shoulder; M25.561 Pain in right knee; M54.2 Cervicalgia; E16.2 Hypoglycemia, unspecified; E11.9 Type 2 diabetes mellitus without complications; W13.2XXA Fall from, out of or through roof, initial encounter; Z91.013 Allergy to seafood; Z79.891 Long term (current) use of opiate analgesic; Z79.899 Other long term (current) drug therapy; Z88.6 Allergy status to analgesic agent; Z79.4 Long term (current) use of insulin
CPT/HCPCS: 36415; 70450; 70486; 71045; 71260; 72125; 73562; 74177; 80053; 80306; 81000; 82150; 82962; 83690; 83735; 84100; 84703; 85025; 93005